=== PATIENT | male | born 1990 | race Caucasian/White ===

== ENCOUNTER 2023-03-09 03:34 | Emergency (ER) | payer BC, SELFPAY ==
[2023-03-09 03:36] VITALS: BP 172/106; PULSE 87; RESP 18; TEMP 37; O2SAT 97; BMI 42.6
--- NOTE | 2023-03-09 04:06 | EDS_ITS ---
HPI History of Present Illness HPI Narrative: 32-year-old male no stated past medical history. Recently traveled to and from [place] by flight. Had about 5-day history of a trip. Prior to getting on the flight coming home yesterday had some left leg discomfort. Denies any swelling. No fall trauma or injury. No prior history. He has never had any leg surgery. He does have some intermittent lower back pain history. No prior back surgery. He denies any chest pain or shortness of breath. No hemoptysis. He has never had a blood clot before. Chief Complaint: Lower Extremity Injury Informant: patient and spouse/S.O. Occured/Mechanism Mechanism/Context: No injury and No blunt trauma Onset/Context/Timing Onset: Today and Yesterday Context: Gradual Onset Timing: Continuous Quality of Pain: Dull and Aching Current Severity: Mild Maximum Severity: Moderate Associated Symptoms Associated Symptoms: Negative for Parasthesia, Weakness or Loss of Funtion Narrative Narrative: 32-year-old male no prior history. Concern with atraumatic left posterior lower thigh and proximal calf pain. No fever. No prior history. No trauma. Prior similar symptoms: No Recent Illness/Hospitalization: No PFSH PFSH Medical History no medical history no medical history Home Medications NK 03/09/23 [History Last Taken Unknown] Allergy/AdvReac Type Severity Reaction Status Date / Time amoxicillin Allergy PT UNSURE Verified 03/09/23 03:40 OF REACTION Surgical History no surgical history Social History Smoking Status: Never smoker ROS ROS ED ROS Narrative Denies recent illness. Review of Systems ROS Unobtainable: Denies due to encephalopathy Constitutional Constitutional ED: Denies chills or fever(s) Eyes Eyes: Denies blurry vision ENT ENT ED: Denies ear pain Cardiovascular Cardiovascular: Denies chest pain Respiratory/Chest Respiratory/Chest: Denies cough Gastrointestinal Gastrointestinal: Denies abdominal pain Genitourinary Genitourinary ED: Denies dysuria or hematuria Musculoskeletal Musculoskeletal: Denies arthralgias Integumentary Denies abscess Neurologic Neurologic: Denies headache(s) Psychiatric Psychiatric: Denies anxiety Endocrine Endocrinology: Denies polydipsia Hematologic/Lymphatic Hematologic/Lymphatic: Denies easy bleeding or easy bruising Allergic/Immunologic Allergic/Immunologic ED: Denies mouth swelling or tongue swelling EXAM Physical Exam Narrative Exam Narrative: 5-year-old male no acute distress. Vital signs stable afebrile. H EENT exam unremarkable. Neck nontender no lymphadenopathy. Lungs clear to auscultation bilaterally. Heart regular rhythm rate about 85 no murmur. Chest wall nontender. Abdomen soft nontender. Back nontender. No SI tenderness. Moving all 4 extremities. Neurovascular intact. His left lower leg he has full flexion extension of the left hip, knee, ankle and foot. Normal dorsi plantarflexion. Normal DP pulse. Normal motor strength. Normal sensation. There is no reproducible calf tenderness or thigh tenderness. There is no redness or warmth. There is no cord or any swelling nor edema. There is no inguinal lymphadenopathy. There is no discoloration of the skin. He has a normal leg exam. Negative straight leg raise. Neurologically he is awake and alert with no focal motor or sensory deficits. Normal motor strength and sensation and range of motion to all upper and lower extremities. Const Vital Signs: 03/09/23 03:36 Temperature 98.6 F Temperature Source Temporal Pulse Rate 87 Respiratory Rate 18 Blood Pressure 172/106 H Blood Pressure Mean 128 Pulse Ox 97 Oxygen Delivery Method Room Air Positive well nourished and well developed; Negative for cachectic, contractures or unkempt General Appearance ED: well developed and NAD; Negative for unkempt, cachectic or contractures Nutritional Appearance: Negative for cachectic HEENT Reports moist mucous membranes normocephalic and atraumatic; Negative for trauma or tenderness Eyes PERRL General Eye ED: Negative for other Neck full ROM and supple Thyroid: Negative for tender Lymph Lymphatic: Negative for other Chest Wall inspection of chest normal and palpation of chest normal Chest: Negative for other Resp normal respiratory effort, no retractions and clear to auscultation bilaterally Effort and Inspection: Negative for pain with movement Auscultation: Negative for rales, rhonchi or wheezes Cardio regular rate, regular rhythm, S1 normal heart sound, S2 normal heart sound and no murmurs GI non-tender, non-distended and no masses Inspection: Negative for abdominal distention Palpation: soft; Negative for tender or guarding Bladder / Kidney Exam: No other Back/Spine no CVA tenderness General Back: Negative for CVA tenderness Cervical Spine: Negative for cervical spine tenderness Thoracic Spine / Upper Back: Negative for thoracic spinal tenderness Lumbar Spine / Lower Back: Negative for lumbar spinal tenderness Extremity normal to inspection and full ROM Extremity Narrative: Left leg exam normal. Normal color. No redness or warmth. No swelling. Normal range of motion of the left hip. Normal range of motion left knee. Normal range of motion left ankle and foot. No joint swelling. No joint tenderness. The posterior hamstring where he is complaining discomfort and pr oximal posterior calf there is no abnormality. Is not reproducible. Is not swollen. There is no cord. He has a strong DP pulse. There is no inguinal lymphadenopathy. General Extremety ED: Negative for cyanosis, edema or weight-bearing difficulty General Extremity: Negative for cyanosis, edema or weight-bearing difficulty Neuro oriented x3, CN's II-XII intact bilaterally, moves all extremities and no sensory deficits noted Sensorium / Orientation: alert, oriented to person, oriented to place and oriented to time; Negative for orientation impaired, confused, lethargic or stuporous Motor Exam: strength 5/5 throughout Psych mental status grossly normal Appearance: Negative for unkempt Speech: No other Mood & Affect: Negative for anxious Skin no wounds Lesions: no lesions Rashes: no rashes Trauma: Negative for abrasion, laceration or puncture MDM MDM MDM Narrative Medical decision making narrative: 32-year-old male with atraumatic left distal, posterior thigh and proximal calf discomfort. No trauma. Exam is benign. I suspect this is musculoskeletal. He is obviously concerned it could be a blood clot due to his recent travel. I will order a noninvasive study to be done and they will be available till the morning. He and his significant understand that. He will be called in the morning and this will be arranged. I will put an electronic order. Will be given Motrin for pain. History & Record Review Discussion w/independent historian: Patient and Significant other Additional record(s) reviewed:: No prior records Discharge Plan Triage Chief Complaint: Lower Extremity Injury ED Provider: Saulo Montenegro Dx/Rx/DC Orders Clinical Impression: Left leg pain Instructions: ED Pain, Acute, Uncertain Cause Prescriptions: No Action NK Primary Care Provider: Care Physician,No Primary Referrals: Florencio Jones MD [Med Staff - Radio Aerial Installer] - 3-5 Days if not improving Care Physician,No Primary [Primary Care Provider] - Activity Restrictions/Additional Instructions: Most likely this is musculoskeletal leg pain. Motrin for pain and inflammation and Tylenol for pain. Make sure you are drinking plenty of fluids because dehydration from your travel and being in warm weather could also cause muscle spasms and pain. I will order a noninvasive study which is an ultrasound of your leg which they will call you later this morning and set it up to be done somewhere between 8 AM and noon. If for any reason they do not call you by 11 AM called the ER and we will get it taken care of. Disposition Disposition: Home, Self Care
[2023-03-09] MEDS: Ibuprofen 400 MG Tablet 800 MG PO (04:24)
== END 2023-03-09 04:26 | disposition home or self-care (01) ==
PROVIDERS: Emergency Provider Emergency Medicine; Visit Provider Emergency Medicine
DX: M79.662 Pain in left lower leg (principal)
CPT/HCPCS: 99283

== ENCOUNTER 2023-03-09 13:28 | Emergency (ER) | payer BC, SELFPAY ==
[2023-03-09 13:29] VITALS: BP 161/102; PULSE 96; RESP 18; TEMP 36.5; O2SAT 95
[2023-03-09 13:50] VITALS: BMI 43.2
[2023-03-09 14:19] LABS: Absolute Lymphocyte Count 1.74 X10^3/uL (0.83-4.51); Absolute Neutrophil Count 6.1 X10^3/uL (2.0-7.7); Basophil# 0.02 X10^3/uL; Basophil% 0.2 % (0-1); Eosinophil# 0.12 X10^3/uL; Eosinophils% 1.4 % (0-5); Hematocrit 40.2 % (40-54); Hemoglobin 13.8 g/dL (13.0-16.5); Lymphocyte # 1.74 X10^3/ul (0.83-4.51); Lymphocyte % 19.9 % (19-41); Mean Corp Hgb Conc 34.3 g/dL (32-36); Mean Corpuscular Hgb 29.8 pg (27.0-32.0); Mean Corpuscular Volume 86.8 fL (80-94); Mean Platelet Vol. 10.2 fl (6.2-12.0); Monocyte# 0.75 X10^3/uL; Monocyte% 8.6 % (0-10); NRBC Flagged by Analyzer 0 % (0-5); Neutrophil # 6.08 X10^3/uL (2.7-7.7); Neutrophil % 69.6 % (47-70); Platelet Count 282 K/mm3 (150-450); RBC Distribution Width SD 40.8 fl (35.1-43.9); Red Blood Count 4.63 M/mm3 (4.6-6.2); White Blood Count 8.7 K/mm3 (4.4-11.0)
[2023-03-09 14:30] LABS: Anion Gap 5 (5-15); BUN 14 mg/dL (7-18); BUN/Creat Ratio 16.4 RATIO (10-20); Calcium,Total 9.1 mg/dL (8.5-10.1); Chloride 104 mmol/L (98-107); Creatinine, Serum 0.85 mg/dL (0.70-1.30); EST Glomerular Filtration Rate 111 mL/min (>60); Est Glom Filt Rate - Afr Amer 135 mL/min (>60); Estimated Creatinine Clearance 135.34 ml/min; Glucose 112 mg/dL (74-106); Sodium Level 137 mmol/L (136-145)
--- NOTE | 2023-03-09 14:52 | EX.ED.DYSGE1 ---
HPI <GUDELIA Lizama - Last Filed: 03/09/23 14:59> History of Present Illness Chief Complaint: Lower Extremity Injury Narrative Narrative: Patient is a 32-year-old male with no significant medical history presents to the emergency department with pain to the left calf. Patient was seen here, and had an ultrasound of the left lower extremity concern for DVT today. This was positive for an acute DVT to the left Soleus vein. Patient was then sent to the emergency department. Patient did have some issues with his lower lumbar spine, he was not as active as usual, then 1 week ago he left on the airplane to go to [place]. During this time on the airplane, he noticed that his left calf was cramping. He then had pain throughout the entire vacation, then flew back 2 days ago. He was seen yesterday and ordered an outpatient ultrasound. Patient is here for evaluation. He currently does not have a PCP. PFS <GUDELIA Lizama - Last Filed: 03/09/23 14:59> [facility] Medical History (Updated 03/09/23 @ 14:56 by GUDELIA Lizama) No acute medical problems Home Medications apixaban 5 mg (74 tabs) tablets in a dose pack (Eliquis DVT-PE Treat 30D Start) 5 mg PO BID #74 tabs 03/09/23 [Rx Last Taken Unknown] Allergy/AdvReac Type Severity Reaction Status Date / Time amoxicillin Allergy PT UNSURE Verified 03/09/23 03:40 OF REACTION Social History Smoking Status: Never smoker ROS <GUDELIA Lizama - Last Filed: 03/09/23 14:59> ROS ED ROS Narrative Constitutional: Negative for fever, chills, weight loss, weakness Eyes: Negative for vision loss, vision change, double vision ENT: Negative for any sore throat, ear pain, congestion Cardiovascular: Negative for any chest pain, tightness, palpitations Respiratory: Negative for any cough, sputum production, hemoptysis, dyspnea, dyspnea on exertion, orthopnea Gastrointestinal: Negative for any abdominal pain, nausea, vomiting, diarrhea, constipation, blood in stool, blood in vomit : Negative for any urinary frequency, dysuria, retention, blood in urine Muscle skeletal: Negative for any muscle joint pain, stiffness, myalgias, arthralgias, neck pain, back pain. Positive left lower leg pain, left calf pain Neurological: Negative for any headache, syncope, numbness or tingling, dizziness Skin: Negative for any rashes, lumps, itching, abrasions, lacerations Psychiatric: Negative for any depression, anxiety, stress, suicidal ideation, homicidal ideation Hematologic: Negative for any easy bruising, excessive bruising, easy bleeding Allergies: Negative for any eczema, hives, rash EXAM <GUDELIA Lizama - Last Filed: 03/09/23 14:59> Physical Exam Narrative Exam Narrative: Vital signs reviewed. Extremities: Patient's left calf is tender to the touch. There is no significant redness, there is edema. Patient is in a +2 pedal pulse. There is no evidence of any compartment syndrome, compartments are soft. Intact extensor mechanism Neuro: Cranial nerves II through XII intact, no focal neurological deficits. Skin: Clean dry and intact with no rash, purpura, petechiae, vesicles or pustules. Backs/flank: No CVA tenderness, no midline spinal tenderness, no deformity. Psych: Normal mood and affect. No SI, HI or acute psychosis. Const Vital Signs: 03/09/23 13:29 Temperature 97.7 F L Temperature Source Temporal Pulse Rate 96 Respiratory Rate 18 Blood Pressure 161/102 H Blood Pressure Mean 121 Pulse Ox 95 Oxygen Delivery Method Room Air Positive well nourished and well developed General Appearance ED: well developed <Dr. Brennen Cross MD - Last Filed: 03/09/23 17:57> Physical Exam Const Vital Signs: 03/09/23 13:29 Temperature 97.7 F L Temperature Source Temporal Pulse Rate 96 Respiratory Rate 18 Blood Pressure 161/102 H Blood Pressure Mean 121 Pulse Ox 95 Oxygen Delivery Method Room Air MDM <GUDELIA Lizama - Last Filed: 03/09/23 14:59> MDM Lab Data Labs: Laboratory Results - last 24 hr 03/09/23 14:10 WBC 8.7 RBC 4.63 Hgb 13.8 Hct 40.2 MCV 86.8 MCH 29.8 MCHC 34.3 RDW Std Deviation 40.8 RDW Coeff of Kaden 13.0 Plt Count 282 MPV 10.2 Immature Gran % (Auto) 0.300 Neut % (Auto) 69.6 Lymph % (Auto) 19.9 Atkinson % (Auto) 8.6 Eos % (Auto) 1.4 Baso % (Auto) 0.2 Absolute Neuts (auto) 6.1 Absolute Lymphs (auto) 1.74 Nucleated RBC % 0 Sodium 137 Potassium 4.0 Chloride 104 Carbon Dioxide 28.0 Anion Gap 5 BUN 14 Creatinine 0.85 Estim Creat Clear Calc 135.34 Est GFR (MDRD) Af Amer 135 Est GFR (MDRD) Non-Af 111 BUN/Creatinine Ratio 16.4 Glucose 112 H Calcium 9.1 Treatment and Re-Evaluation :: Patient appears generally well, patient appears nontoxic, vital stable. Patient presents to the emergency department for a positive DVT study in the soleus vein. Patient has no chest pain, no shortness of breath. There is no evidence suspect any pulmonary embolus. Secondary to the DVT, the patient will receive the Eliquis starter pack, I did do basic labs, CBC BMP these were unremarkable. Patient will be required to follow-up with a PCP, I will give him the next PCP for consult. He was made aware that if he cannot get into the PCP, he needs to come back in for more Eliquis. He verbally understands this. There is no evidence of any compartment syndrome, patient is neurologically focally intact. All questions answered, patient stable for discharge. <Dr. Brennen Cross MD - Last Filed: 03/09/23 17:57> [facility] MDM Narrative Medical decision making narrative: I have personally performed a face to face assessment of the patient and have reviewed the GABRIELE Note. I performed a substantive portion of the visit including all aspects of the following. My martinez findings include: History: Patient has positive DVT in the left leg. He has had recent plane flight. He is also had some mild decreased mobility due to some back pain issues but he is still mobile. No family history of DVT or PE. He has no chest pain palpitations shortness of breath cough or syncope presyncope. He has no recent bleeding. No recent surgeries. Exam: Patient awake alert no acute distress. Pulse is normal. Respirations are normal and lungs are clear. Saturation is normal at 95% on room air showing no hypoxia. His legs show some mild tenderness but I do not see any notable swelling tenderness or palpable cord. But he does have a positive ultrasound Medical Decision Making: Work was done to check his hemoglobin and platelets in case he develops any bleeding issues we have a baseline. Electrolytes showed normal renal function so we can start him on Eliquis and we will have him follow-up. He does not have a primary physician. We will refer him. But it was explained that if he cannot get in within the next 30 days he should return so we can continue his medications. Lab Data Attestation: I reviewed the patient's lab results. Labs: Laboratory Results - last 24 hr 03/09/23 14:10 WBC 8.7 RBC 4.63 Hgb 13.8 Hct 40.2 MCV 86.8 MCH 29.8 MCHC 34.3 RDW Std Deviation 40.8 RDW Coeff of Kaden 13.0 Plt Count 282 MPV 10.2 Immature Gran % (Auto) 0.300 Neut % (Auto) 69.6 Lymph % (Auto) 19.9 Atkinson % (Auto) 8.6 Eos % (Auto) 1.4 Baso % (Auto) 0.2 Absolute Neuts (auto) 6.1 Absolute Lymphs (auto) 1.74 Nucleated RBC % 0 Sodium 137 Potassium 4.0 Chloride 104 Carbon Dioxide 28.0 Anion Gap 5 BUN 14 Creatinine 0.85 Estim Creat Clear Calc 135.34 Est GFR (MDRD) Af Amer 135 Est GFR (MDRD) Non-Af 111 BUN/Creatinine Ratio 16.4 Glucose 112 H Calcium 9.1 Discharge Plan Triage Chief Complaint: Lower Extremity Injury ED Midlevel Provider: Carlos Bundy ED Provider: Brennen Cross Dx/Rx/DC Orders Clinical Impression: DVT (deep venous thrombosis) Instructions: DVT Complications, DVT Dc Prescriptions: New Eliquis DVT-PE Treat 30D Start 5 mg (74 tabs) tablets,dose pack 5 mg PO BID Qty: 74 0RF Primary Care Provider: Care Physician,No Primary Referrals: Giselle Blair MD [Med Staff - Financial Center Manager] - (You have a DVT ) Care Physician,No Primary [Primary Care Provider] - Activity Restrictions/Additional Instructions: You need to follow-up with a PCP secondary to an acute deep vein thrombosis in the left soleus vein. You are on the Eliquis starter pack. If you cannot follow-up with this doctor before your Eliquis runs out you need to return to the emergency department. You need to return for any worsening shortness of breath, chest pain. Disposition Disposition: Home, Self Care Discharge Date/Time: 03/09/23 15:11
== END 2023-03-09 15:11 | disposition home or self-care (01) ==
PROVIDERS: Nurse Practitioner; Emergency Provider Emergency Medicine; Visit Provider Emergency Medicine
DX: I82.462 Acute embolism and thrombosis of left calf muscular vein (principal)
CPT/HCPCS: 80048; 85025; 99282; A4216

== ENCOUNTER → 2023-03-09 | Outpatient (CLI) | payer BC, SELFPAY ==
--- NOTE | 2023-03-09 13:00 | VDLE_ITS ---
Reason For Study: Lt Leg Pain RIGHT LEFT CFV is compressible, spontaneous, phasic, GSV is normal. competent and demonstrates normal CFV is compressible, spontaneous, phasic, augmentation. competent, and demonstrates normal Procedure augmentation. This is a venous duplex using B-mode, color FV is compressible, spontaneous, phasic, flow and spectral Doppler. competent and demonstrates normal Exam performed in department. augmentation. The exam was diagnostic. POP V is compressible, spontaneous, phasic, Next day ER Patient taken to ED for treatmet competent and demonstrates normal by tech. augmentation. T/P Trunk is compressible. PTV is compressible. LT PerV is compressible. Acute deep vein thrombosis is noted in the left soleus vein. Vessel is DILATED and NONCOMPRESSIBLE at mid calf. VL/Venous Duplex US, Unilateral Interpretation Summary Acute deep venous thrombosis left soleus vein. Patent and compressible left great saphenous vein Normal flow patterns right common femoral vein Ordering Physician: Saulo Montenegro Referring Physician: N/A Performed By: Crow Vela RVT
== END | disposition home or self-care (01) ==
LOC: CVS 12:58
PROVIDERS: Referring Provider Emergency Medicine; Visit Provider Emergency Medicine
DX: M79.662 Pain in left lower leg (principal)
CPT/HCPCS: 93971

== ENCOUNTER 2023-07-20 17:47 | Emergency (ER) | payer BC, SELFPAY ==
[2023-07-20 17:47] VITALS: BP 161/102; PULSE 88; RESP 16; TEMP 35.9; O2SAT 100; BMI 43.0
[2023-07-20 17:51] VITALS: BP 150/87; PULSE 85; RESP 16; O2SAT 98
--- NOTE | 2023-07-20 19:04 | US_ITS ---
STUDY: VENOUS DOPPLER ULTRASOUND - LEFT LOWER EXTREMITY REASON FOR EXAM: Male, 33 years old. LT THIGH PAIN TECHNIQUE: Ultrasound evaluation of the deep vein system to include luciano-scale imaging and compression was performed. Luciano-scale imaging and Doppler sonographic evaluation, including duplex spectral analysis and qualitative color flow sonography, was performed. COMPARISON: None. FINDINGS: Common Femoral Vein: Normal compression, spontaneity and augmentation. Normal color Doppler. Common Femoral Vein/Greater Saphenous Junction: Normal compression, spontaneity and augmentation. Normal color Doppler. Deep Femoral Vein: Normal compression, spontaneity and augmentation. Normal color Doppler. Femoral Proximal: Normal compression, spontaneity and augmentation. Normal color Doppler. Femoral Middle: Normal compression, spontaneity and augmentation. Normal color Doppler. Femoral Distal: Normal compression, spontaneity and augmentation. Normal color Doppler. Popliteal Vein: Normal compression, spontaneity and augmentation. Normal color Doppler. Posterior Tibial Vein: Normal compression, spontaneity and augmentation. Normal color Doppler. Peroneal Vein: Normal compression, spontaneity and augmentation. Normal color Doppler. US/Venous Duplex Imag/Limited/Uni IMPRESSION: Normal venous Doppler ultrasound of the lower extremity. Electronically Signed: Orlando Leon MD at 19:51 EST Reading Location ID and State: [address] [place] [address] Tel , Service support ,
--- NOTE | 2023-07-20 20:19 | ED.VIS.LOWEX ---
HPI History of Present Illness Chief Complaint: Lower Extremity Injury Informant: patient Narrative Narrative: Patient is having pain on the left leg. Patient has a history of DVT. He I saw him back in February. Diagnosed. He has been off his Eliquis now. He was having some pain in his leg and he had an ultrasound on the that was negative. But he states he gets pain in his back and goes down the back of his leg. He told his doctor that was still going on so's they stated since the pain change the location he should have another ultrasound. He has no numbness tingling. No weakness. No bowel bladder dysfunction. He is not short of breath. No fevers or chills. No acute trauma. [facility] Medical History No acute medical problems Home Medications apixaban 5 mg (74 tabs) tablets in a dose pack (Eliquis DVT-PE Treat 30D Start) 5 mg PO BID #74 tabs 03/09/23 [Rx Last Taken Unknown] cyclobenzaprine 10 mg tablet 10 mg PO TID PRN Muscle Spasm #15 TABLETS 07/20/23 [Rx Last Taken Unknown] prednisone 20 mg tablet 60 mg (3 x 20 mg) PO DAILY #15 TABLETS 07/20/23 [Rx Last Taken Unknown] Allergy/AdvReac Type Severity Reaction Status Date / Time amoxicillin Allergy PT UNSURE Verified 03/09/23 03:40 OF REACTION Social History Smoking Status: Never smoker [facility] ED Constitutional Constitutional ED: Denies chills or fever(s) ENT ENT ED: Denies rhinorrhea or sore throat Cardiovascular Cardiovascular: Denies chest pain or palpitations Respiratory/Chest Respiratory/Chest: Denies cough or dyspnea Gastrointestinal Gastrointestinal: Denies abdominal pain or vomiting Genitourinary Genitourinary ED: Denies dysuria, hematuria or urinary frequency Musculoskeletal Musculoskeletal: Reports back pain; Denies neck pain Integumentary Denies abscess, Abrasions or rash Neurologic Neurologic: Denies paresthesias or weakness Hematologic/Lymphatic Hematologic/Lymphatic: Denies easy bleeding or easy bruising Allergic/Immunologic Allergic/Immunologic ED: Denies urticaria EXAM Physical Exam Narrative Exam Narrative: CONSTITUTIONAL: Patient is nontoxic in appearance. The patient looks comfortable. Work of breathing looks normal. HEENT: No notable trauma. Mucous membranes moist. EYES: No conjunctival injection. No pallor. NECK:No JVD. No stridor. CARDIOVASCULAR: Regular rate. Regular rhythm. No notable murmur. No JVD. RESPIRATORY: No respiratory distress. Breathing is unlabored. No wheezes. No rhonchi. No rales. No pain with a deep breath. No chest wall tenderness. GASTROINTESTINAL: Not distended. Bowel sounds are normal. No tenderness. GENITOURINARY: No CVA tenderness. MUSCULOSKELETAL: Patient has some mild nonfocal lower lumbar tenderness. No peripheral edema. No cord. No tenderness along the deep venous system. No asymmetry. No distended veins. NEUROLOGICAL: Patient is alert and appropriate. No focal deficit noted. Normal gait normal strength. He can stand on his toes heels walk around without any difficulty. SKIN: No noted rashes. No diaphoresis. PSYCHIATRIC: Patient is calm. Mood is appropriate. Const Vital Signs: 07/20/23 17:47 Temperature 96.7 F L Temperature Source Temporal Pulse Rate 88 Respiratory Rate 16 Blood Pressure 161/102 H Blood Pressure Mean 121 Pulse Ox 100 Oxygen Delivery Method Room Air MDM MDM MDM Narrative Medical decision making narrative: Patient's exam and history is most consistent with radicular pain down his left leg. But he has a history of DVT and is off medicines. We did do ultrasound. This was negative for DVT. We discussed options. He has tried Motrin and things. I will put him on a short course of prednisone. As he does seem to have some muscular tightness in the back, I will try muscle relaxant. We will have him follow-up with his primary physician. Radiography Diagnostic Testing: Clinical Impression(s) from Imaging Studies Venous Duplex 07/20/23 19:04 IMPRESSION: Normal venous Doppler ultrasound of the lower extremity. Electronically Signed: Orlando Leon MD at 19:51 EST , Discharge Plan Triage Chief Complaint: Lower Extremity Injury ED Provider: Brennen Cross Dx/Rx/DC Orders Clinical Impression: History of deep vein thrombosis, Left sided sciatica, Back pain Instructions: ED Sciatica Prescriptions: New cyclobenzaprine [cyclobenzaprine] 10 mg tablet 10 mg PO TID PRN (Reason: Muscle Spasm) Qty: 15 0RF prednisone 20 mg tablet 60 mg PO DAILY Qty: 15 0RF No Action Eliquis DVT-PE Treat 30D Start 5 mg (74 tabs) tablets,dose pack 5 mg PO BID Qty: 74 0RF Primary Care Provider: Varsha Mishra Referrals: Varsha Mishra, [employer] [id number] [Primary Care Provider] - Disposition Disposition: Home, Self Care
[2023-07-20 20:43] VITALS: BP 158/75; PULSE 85; RESP 15; O2SAT 98
== END 2023-07-20 20:45 | disposition home or self-care (01) ==
PROVIDERS: Emergency Provider Emergency Medicine; PCP Nurse Practitioner Family; Visit Provider Emergency Medicine
DX: M54.42 Lumbago with sciatica, left side (principal); Z86.718 Personal history of other venous thrombosis and embolism
CPT/HCPCS: 93971; 99282